=== PATIENT | female | born 1990 | race Caucasian/White ===

== ENCOUNTER 2023-02-20 08:58 | Emergency (ER) | payer MEDICAID ==
[~2023-02-20] VITALS: Ht 160 cm; Wt 56.8 kg
[2023-02-20 09:21] VITALS: BP 107/75; PULSE 109; RESP 18; TEMP 98.5; O2SAT 99
[2023-02-20 09:57] LABS: BILIRUBIN,URINE NEGATIVE (Neg); CLARITY,URINE CLOUDY (Clear); COLOR,URINE YELLOW (Yellow); GLUCOSE, URINE NEGATIVE (Neg); KETONES,URINE TRACE mg/dl (Neg); LEUKOCYTE ESTERASE ,URINE NEGATIVE (Neg); NITRITES, URINE POSITIVE (Neg); OCCULT BLOOD,URINE TRACE-INTACT (Neg); PROTEIN,URINE TRACE mg/dl (Neg); UROBILINOGEN,URINE 0.2 E.U/dL (0.2-1.0)
[2023-02-20 09:59] LABS: UA COLLECTION TYPE CLN CATCH MIDSTREAM
[2023-02-20 10:04] LABS: MUCUS STRANDS MODERATE /LPF (Neg); SQUAMOUS EPITHELIAL CELL,UR MANY /LPF (FEW)
[2023-02-20 10:05] LABS: BACTERIA,URINE 2+ /HPF (Neg); CAL OXALATE CRYSTALS 1+ /HPF (NEGATIVE); RBC,URINE 0-2 /HPF (0-2)
[2023-02-20 10:09] LABS: URINE HCG NEGATIVE (NEG)
[2023-02-20] MEDS ORDERED: CefTRIAXone 250MG inj IM ONE (11:20)
[2023-02-20] MEDS ORDERED: azithromycin 250mg tablet PO ONE (11:20)
[2023-02-20] MEDS ORDERED: CefTRIAXone 250MG IM Kit w/LIDOcaine IM ONE (11:25)
== END 2023-02-20 11:47 | disposition home or self-care (01) ==
LOC: ER 08:59
DX: R30.0 Dysuria (principal); Z88.1 Allergy status to other antibiotic agents
CPT/HCPCS: 81001; 81025; 96372; 99283; J0696